=== PATIENT | male | born 1970 | race Caucasian/White ===

== ENCOUNTER 2024-08-30 06:22 | Day surgery (SDC) | payer OTHER, SELFPAY | END 2024-08-30 09:13 | disposition home or self-care (01) | LOC: GI 06:22 | PROVIDERS: ATTENDING PHYSICIAN Internal Medicine | DX: Z12.11 Encounter for screening for malignant neoplasm of colon (principal); K57.30 Diverticulosis of large intestine without perforation or abscess without bleeding; K64.8 Other hemorrhoids; K62.89 Other specified diseases of anus and rectum | CPT/HCPCS: G0121 ==

== ENCOUNTER 2025-04-13 17:18 | Emergency (ER) | payer OTHER, SELFPAY ==
[2025-04-13 17:22] VITALS: BP 131/86
[2025-04-13 18:56] LABS: Hematocrit 43.0 % (39.0-52.0); Hemoglobin 13.9 g/dL (13.0-18.0); Mean Corp Hgb Conc. 32.3 g/dL (33.0-37.0); Mean Corpuscular Volume 88.5 fL (80.0-94.0); Nucleated Red Blood Cells % 0 % (-); Platelet Count 321 10^3/uL (130-400); Red Cell Dist. Width 12.8 % (11.5-14.5)
[2025-04-13 19:18] LABS: Blood Urea Nitrogen 18 mg/dl (9-20); Calcium 9.3 mg/dl (8.4-10.2); Carbon Dioxide 32 mmol/L (22-30); Chloride 103 mmol/L (98-107); Glucose 111 mg/dl (70-99); Potassium 4.6 mmol/L (3.5-5.1); Sodium 137 mmol/L (135-145); eGFR > 60.00
[2025-04-13 19:21] LABS: C-Reactive Protein 31.00 mg/L (0.0-10.00)
[2025-04-13 19:24] VITALS: BP 126/80
--- NOTE | 2025-04-13 22:07 | ED.GENMED ---
History of Present Illness
General
Chief Complaint: Musculo-Skeletal Complaint
Source: patient
Exam Limitations: none
Time Seen by Provider: 04/13/25 18:00
Nursing documentation reviewed up to this point in time: agreed with
History of Present Illness
History of Present Illness:
Patient presents to ED secondary to recurrent right knee swelling with pain over the past 2 days. Patient states that he had an injury 3 weeks ago, where he banged his kneecap against a cabinet. Due to pain with swelling, patient was evaluated by
his primary care physician who referred patient to an orthopedic surgeon. Patient was evaluated by Dr. Rudolph at [facility] orthopedic surgery 2 weeks ago and in the office, knee was drained, with initial diagnosis of bursitis. 1 week later,
swelling returned. Patient was once again seen by Dr. Rudolph and knee was once again drained in the office. Denies fever or chills. Denies new trauma. Denies nausea or vomiting. Patient has however, noticed redness, which was not present in
the past.
Review of Systems
Review of Systems
Allergies reviewed?: Yes
All Other Systems: ROS reviewed and negative except as documented in HPI and ROS
Constitutional: Reports no symptoms
Respiratory: Reports no symptoms; Denies trouble breathing
ABD/GI: Reports no symptoms
Musculoskeletal: Reports other (knee pain w swelling)
Skin: Reports other (knee redness)
Neurological: Reports no symptoms
Phy Exam
Physical Exam
Physical Exam:
Physical Exam
General: no apparent distress, not acutely ill. afebrile
Head: nc/at. eomi
Neck: supple. no meningeal signs
Neuro: alert and oriented x 3. no focal neurological deficits
Skin: no rash
Psychiatric: well kept. interactive and cooperative
Extremities: right knee: diffuse erythema noted with swelling, with erythema extending up to medial mid thigh. mild associated LE swelling noted. no calf tenderness. normal range of motion
Course
Orders/Labs/Results
Orders:
Orders
04/13/25 18:38
Basic Metabolic Panel Urgent
CRP [C-Reactive Protein] Urgent
Complete Blood Count/With Diff Urgent
ESR [Erythrocyte Sed Rate] Urgent
Lactic Acid Q4H
Comment: CANCEL 2nd LACTIC ACID IF 1st LACTIC ACID IS LESS THAN 2
Blood Culture Q30M
ADIS Source: Blood/Venous
Specimen Description:
Blood Culture Q30M
ADIS Source: Blood/Venous
Specimen Description:
04/13/25 22:06
Cephalexin Monohydrate [Keflex] 500 mg PO NOW STA
04/13/25 22:08
Ibuprofen [Motrin] 400 mg PO NOW STA
Abnormal Lab Results
04/13/25
18:38
MCHC 32.3 L g/dL
(33.0-37.0)
Absolute Monos (auto) 0.7 H 10^3/uL
(0.1-0.6)
ESR 31 H mm/hour
(0-20)
Carbon Dioxide 32 H mmol/L
(22-30)
Glucose 111 H mg/dl
(70-99)
C-Reactive Protein 31.00 H mg/L
(0.0-10.00)
04/13/25 18:38
04/13/25 18:38
Vital Signs
Initial and Last Documented VS:
Initial Vital Signs
Temp Pulse Resp BP Pulse Ox
97.4 F 72 16 131/86 100
04/13/25 17:22 04/13/25 17:22 04/13/25 17:22 04/13/25 17:22 04/13/25 17:22
Last Documented Vital Signs
Temp Pulse Resp BP Pulse Ox
97.4 F 64 18 126/80 98
04/13/25 17:22 04/13/25 19:27 04/13/25 19:27 04/13/25 19:24 04/13/25 22:07
Procedures
Incision/Drainage/Joint Aspiration
Right Knee:
Anethesia: 1% Lidocaine with Epi
Preparation: cleaned with Betadine
Type of procedure: aspiration
Nature of site: other (swelling/redness)
Description of abscess: involves one area
How much fluid was obtained?: none
Treatment: bandaid applied
Additional information:
Arthrocentesis unsuccessful x 2, via medial and lateral approach.
MDM/Problems Addressed
MDM/Problems Addressed:
After receiving procedural consent, arthrocentesis performed at bedside sterilely. Unfortunately on both medial and lateral approach, no joint fluid was able to be aspirated. With patient being afebrile, normal blood work, and with normal range of
motion, it is quite possible that diffuse redness may represent potential superficial cellulitis. As such, patient will be started empirically on Keflex and advised to follow-up with his orthopedic surgeon for reevaluation next week. Return
precautions provided, i.e. fever/chills/worsening redness/swelling. Patient expresses understanding at time of discharge, to the care of his spouse
*Pulse Oximetry
SaO2: 98
Oxygen Mode of Delivery: Room air
Patient hypoxic: no
*Critical Care Note
Total Time (30-74mins, 75-104mins- exclusive of procedures): Not Applicable
ED Attending Note
-
Portions of this chart may have been created with voice recognition software.� Occasional wrong word or��sound alike� substitutions may have occurred due to the inherent limitations of voice recognition software.
Discharge Plan
Departure
Patient Disposition: Home (Routine Discharge)
Date of Disposition: 04/13/25
Time of Disposition: 22:07
Patient with high blood pressure during this ER visit?: Yes
Condition: Fair
Discharge Problem:
Cellulitis
Instructions: Cellulitis (skin infection) in adults - ED (DC)
Prescriptions:
New
cephalexin 500 mg capsule
500 mg PO Q8H Qty: 20 0RF
Referrals:
Juno Barba DO [Family Provider, Family Practice]
Sanjeev Rudolph MD [Active, Orthopedics]
Activity Restrictions/Additional Instructions:
As discussed, please follow-up with your orthopedic surgeon for reevaluation next week. Please return to ED with worsening symptoms, i.e. fever/chills/worsening pain/swelling/redness. Your prescription has been sent electronically to [facility] pharmacy
in [place]
Interventions
Interventions:
*Risk Screen - Suicide Last Done: 04/13/25 17:22
*General Assessment Last Done: 04/13/25 22:30
*Neglect/Abuse Screening Last Done: 04/13/25 17:22
*ED- Fall Risk Assessment Last Done: 04/13/25 18:52
*ED COVID-19 Vaccine History Last Done: 04/13/25 18:52
*ED Influenza Vaccine History Last Done: 04/13/25 18:52
*Nursing Disposition Last Done: 04/13/25 22:30
ED-Musculoskeletal Assessment Last Done: 04/13/25 18:52
Discharge Date and Time
Discharge Date/Time: 04/13/25 22:33
Print Language: PORTUGUESE
[2025-04-13] MEDS: MOTRIN 400 MG PO (22:15)
[2025-04-13] MEDS: KEFLEX 500 MG PO (22:15)
== END 2025-04-13 22:33 | disposition home or self-care (01) ==
LOC: EMR 17:18
PROVIDERS: EMERGENCY PHYSICIAN Emergency Medicine; FAMILY PHYSICIAN Family Medicine
DX: L03.115 Cellulitis of right lower limb (principal)
CPT/HCPCS: 99283; 10160; 80048; 83605; 85025; 85652; 86140; 87040